=== PATIENT | female | born 1960 | race Caucasian/White ===

== ENCOUNTER 2016-11-21 10:50 | Outpatient (CLI) | payer OTHER ==
[~2016-11-21] VITALS: Ht 157.5 cm; Wt 62.7 kg
[~2016-11-21 10:50] MED LIST: ASPI81TA3 PO; LEVOTHYROXINE DAILY; LOSARTAN DAILY; OMEPRAZOLE DAILY; [UNRECOGNIZED DRUG - OTHER]; [UNRECOGNIZED DRUG - OTHER]; [UNRECOGNIZED DRUG - OTHER]; albuterol prn
[2016-11-21 10:59] VITALS: BP 146/75; PULSE 85; RESP 18; Ht 157.5 cm; Wt 62.7 kg
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
== END 2016-11-21 16:26 | disposition home or self-care (01) ==
LOC: HPC 10:50
PROVIDERS: ATTEND Transplant Surgery
DX: K76.9 Liver disease, unspecified (principal); F10.20 Alcohol dependence, uncomplicated; F12.10 Cannabis abuse, uncomplicated; Y90.9 Presence of alcohol in blood, level not specified; E78.5 Hyperlipidemia, unspecified; I10 Essential (primary) hypertension; E03.9 Hypothyroidism, unspecified; M54.16 Radiculopathy, lumbar region; Z79.82 Long term (current) use of aspirin
CPT/HCPCS: G0463

== ENCOUNTER 2017-07-24 10:55 | Outpatient (CLI) | payer OTHER ==
[~2017-07-24] VITALS: Ht 157.5 cm; Wt 60.9 kg
[2017-07-24 11:00] VITALS: BP 156/67; PULSE 60; RESP 16; Ht 157.5 cm; Wt 60.9 kg
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
== END 2017-07-24 17:00 | disposition home or self-care (01) ==
LOC: HPC 10:55
PROVIDERS: ATTEND Transplant Surgery
DX: K76.9 Liver disease, unspecified (principal); E78.5 Hyperlipidemia, unspecified; I10 Essential (primary) hypertension; E03.9 Hypothyroidism, unspecified; M54.16 Radiculopathy, lumbar region; M54.12 Radiculopathy, cervical region
CPT/HCPCS: G0463